=== PATIENT | male | born 1960 | race Caucasian/White ===

== ENCOUNTER 2022-11-18 09:13 | Outpatient (CLI) | payer OTHER ==
[~2022-11-18] VITALS: Ht 165.1 cm; Wt 83.9 kg
[2022-11-18] MEDS ORDERED: albuterol 2.5 MG/3 ML nebule NEB PRN (09:50)
== END 2022-11-18 23:59 | disposition home or self-care (01) ==
LOC: RT 09:13
PROVIDERS: ATTEND Chiropractor
DX: I08.8 Other rheumatic multiple valve diseases (principal); F17.210 Nicotine dependence, cigarettes, uncomplicated; Z79.899 Other long term (current) drug therapy
CPT/HCPCS: 71046; 93306; 94060; 94760